=== PATIENT | male | born 1945 | race African-American/Black ===

== ENCOUNTER 2018-03-04 09:12 | Emergency (ER) | payer OTHER, MEDICARE | END 2018-03-04 10:04 | disposition home or self-care (01) | LOC: MADERS 09:12 | DX: M17.11 Unilateral primary osteoarthritis, right knee (principal); N40.0 Benign prostatic hyperplasia without lower urinary tract symptoms; E78.5 Hyperlipidemia, unspecified; I10 Essential (primary) hypertension; E11.9 Type 2 diabetes mellitus without complications; X58.XXXA Exposure to other specified factors, initial encounter | CPT/HCPCS: 99283 ==